=== PATIENT | female | born 1995 | race Caucasian/White ===

== ENCOUNTER 2019-05-05 23:51 | Emergency (ER) | payer OTHER, SELFPAY ==
[2019-05-05 23:52] VITALS: BP 113/77; PULSE 96; RESP 16; TEMP 37.1; O2SAT 96; BMI 38.0
--- NOTE | 2019-05-06 00:06 | CT_ITS ---
STUDY: CT BRAIN WITHOUT CONTRAST REASON FOR EXAM: Female, 24 years old patient has delirium. Patient has been sick for a few days with fever, headache, and dizziness. RADIATION DOSAGE (If Supplied By Facility): CTDIvol = ( 44.99 ) mGy, DLP = ( 762.36 ) mGycm TECHNIQUE: Transaxial CT imaging of the brain was performed without administration of intravenous contrast material. Multiplanar reformations are submitted for interpretation. Individualized dose optimization techniques were used for this CT. COMPARISON: No relevant priors. FINDINGS: Normal soft tissue structures. Normal calvarium. Normal size ventricles and extra-axial spaces for the patient''s age. Normal white matter tracts of the cerebral hemispheres. Normal basal ganglia and thalami. Normal brainstem. Normal cerebellum. There is no intracranial hemorrhage. There are no findings of an acute ischemic infarction. Normal visualized paranasal sinuses. CT/Brain/Head without Contrast IMPRESSION: Normal unenhanced CT scan of the brain. Electronically Signed: Alyce Mclaughlin MD at 1:30 EST , Service support ,
--- NOTE | 2019-05-06 00:07 | ED.VIS.GEN ---
History of Present Illness Chief Complaint: General Illness Informant: Patient Onset: Yesterday Context: Gradual Onset Timing: Continuous Current Severity: Moderate Maximum Severity: Moderate Narrative: The patient is a 24-year-old female with remote history of seizure disorder who presents to the emergency department with fever and nausea. The patient states that yesterday, she had just some generalized myalgias. She states she had a low-grade fever and mild frontal headache. She ate yesterday, but states she really did not have an appetite today. She thought that she would feel better if she would eat something. She states that she baked some chicken, but did not cook at all the way through. She states that she has had a violent reaction to raw chicken in the past. Her brother, who she stays with, said that she appeared to be confused and was complaining of abdominal pain. She states that is since resolved. She denies neck pain. She is had no further fever. She had no further vomiting. She is not on any daily medications. Prior similar symptoms: No Recent Illness/Hospitalization: No Past Medical History - Allergies and Home Meds Allergies/Adverse Reactions: Allergies RAW CHICKEN Adverse Reaction (Uncoded 05/05/19 23:56) Fever and skin rash Primary Care Physician: Edie Petit,Out of [Primary Care Provider] - Prior records reviewed: Yes Past Medical History: - - History of prior seizures Surgical History: noncontributory Review of Systems General: Reports: Fever. Denies: Chills, Sweats Eyes: Denies: Visual changes - bilaterally, Diplopia ENT: Denies: Rhinorrhea, Sore throat Cardiovascular: Denies: Chest pain, Palpitations Respiratory: Denies: Dyspnea, Cough, Dyspnea on exertion Gastrointestinal: Reports: Nausea. Denies: Abdominal pain, Vomiting, Diarrhea, Melena, Hematochezia Genitourinary: Denies: Dysuria, Hematuria, Frequency Musculoskeletal: Denies: Back pain, Extremity Pain Skin: Denies: Rash, Wounds Neurological: Denies: Headache, Weakness, Numbness Physical Exam Vital Signs/Narrative: Vital Signs Temp Pulse Resp BP Pulse Ox 05/05/19 23:52 98.7 F 96 16 113/77 96 Inital Vital Signs reviewed: Yes General: Well nourished, Well developed, No Acute Distress Head: Normocephalic, Atraumatic Eyes: Perrl, EOMI ENT: Moist mucous membranes, No rhinorrhea Neck: Supple, Nontender Cardiovascular: Regular rate, Regular rhythm, No murmurs Respiratory: No distress, CTA bilaterally, Chest nontender Abdomen: Soft, Nontender, Nondistended, Normal bowel sounds Back: Nontender, Normal Inspection Extremities: Nontender, No edema Skin: Normal color, No rash Neurological: Alert, Oriented x3, Cranial nerves II-XII grossly intact, Normal Strength, Normal Sensation Psychological: Normal affect, Normal Mood Diagnostic/Tx/Re-eval Abnormal Lab Results 05/06/19 05/06/19 05/06/19 00:15 00:15 00:15 WBC 5.4 RBC 4.76 Hgb 13.1 Hct 40.3 MCV 84.7 MCH 27.5 MCHC 32.5 RDW Std Deviation 38.8 RDW Coeff of [place] 12.7 Plt Count 201 MPV 10.4 Immature Gran % (Auto) 0.400 Neut % (Auto) 64.0 Lymph % (Auto) 23.3 [place] % (Auto) 11.7 H Eos % (Auto) 0.2 Baso % (Auto) 0.4 Absolute Neuts (auto) 3.5 Absolute Lymphs (auto) 1.26 Nucleated RBC % 0 Sodium 139 Potassium 3.6 Chloride 108 H Carbon Dioxide 27.0 Anion Gap 4 L BUN 9 Creatinine 0.74 Estim Creat Clear Calc 97.81 Est GFR (MDRD) Af Amer 126 Est GFR (MDRD) Non-Af 104 BUN/Creatinine Ratio 12.2 Glucose 97 Calcium 9.0 Total Bilirubin 0.20 AST 12 L ALT 25 Alkaline Phosphatase 34 L Total Protein 7.6 Albumin 3.7 Globulin 3.9 Albumin/Globulin Ratio 0.9 Urine Color Urine Clarity Urine pH Ur Specific [place] Urine Protein Urine Glucose (UA) Urine Ketones Urine Occult Blood Urine Nitrite Urine Bilirubin Urine Urobilinogen Ur Leukocyte Esterase Urine RBC Urine WBC Ur Squamous Epith Cells Urine Bacteria Urine Mucus Urine Test Negative 05/06/19 00:15 WBC RBC Hgb Hct MCV MCH MCHC RDW Std Deviation RDW Coeff of [place] Plt Count MPV Immature Gran % (Auto) Neut % (Auto) Lymph % (Auto) [place] % (Auto) Eos % (Auto) Baso % (Auto) Absolute Neuts (auto) Absolute Lymphs (auto) Nucleated RBC % Sodium Potassium Chloride Carbon Dioxide Anion Gap BUN Creatinine Estim Creat Clear Calc Est GFR (MDRD) Af Amer Est GFR (MDRD) Non-Af BUN/Creatinine Ratio Glucose Calcium Total Bilirubin AST ALT Alkaline Phosphatase Total Protein Albumin Globulin Albumin/Globulin Ratio Urine Color Yellow Urine Clarity Clear Urine pH 7.0 Ur Specific [place] 1.005 Urine Protein Negative Urine Glucose (UA) Normal Urine Ketones Negative Urine Occult Blood Negative Urine Nitrite Negative Urine Bilirubin Negative Urine Urobilinogen Normal Ur Leukocyte Esterase Negative Urine RBC 0 SEEN Urine WBC 0 SEEN Ur Squamous Epith Cells 0 SEEN Urine Bacteria 0 SEEN Urine Mucus 0 SEEN Urine Test - Medical Decision Making The patient presents with nausea and some transient confusion after 36 hours of generalized illness and she ate chicken. She is awake and alert now. She has not confused. She is not delirious. She is not meningitic or encephalopathic. However, she does have a remote history of seizure so I did obtain a head CT. This was unremarkable for acute process. Screening labs were obtained and were unremarkable. The patient is not . There is no ketones in her urine. Her liver functions and electrolyte panel was within normal limits. She was given fluids and Zofran. She is feeling improved. At this point, I do feel that this is likely a reaction to the undercooked chicken. She has no abdominal pain. She has no fever. Her metabolic work-up is unremarkable and she is feeling improved. I do feel that she is safe for outpatient therapy. Impression 1. Gastroenteritis ED Disposition - Plan for ED Patient: Instructions: GASTROENTERITIS, Viral (7y-Adult) Prescriptions: Ondansetron [Zofran Odt] 4 mg PO Q8H PRN PRN #10 tab PRN Reason: Nausea Prescription Printed Referrals: [facility] Doctor,Out of [Primary Care Provider] -
[2019-05-06] MEDS: 0.9% Normal Saline 1,000 ML 1000 ML IV (00:16)
[2019-05-06 00:20] VITALS: PULSE 91; RESP 16; O2SAT 95
[2019-05-06 00:26] LABS: Absolute Lymphocyte Count 1.26 X10^3/uL (0.83-4.51); Absolute Neutrophil Count 3.5 X10^3/uL (2.0-7.7); Basophil# 0.02 X10^3/uL; Basophil% 0.4 % (0-1); Eosinophil# 0.01 X10^3/uL; Eosinophils% 0.2 % (0-5); Hematocrit 40.3 % (37-47); Hemoglobin 13.1 g/dL (12.0-15.0); Lymphocyte # 1.26 X10^3/ul (4.0); Lymphocyte % 23.3 % (19-41); Mean Corp Hgb Conc 32.5 g/dL (32-36); Mean Corpuscular Hgb 27.5 pg (27.0-32.0); Mean Corpuscular Volume 84.7 fL (81-99); Mean Platelet Vol. 10.4 fl (6.2-12.0); Monocyte# 0.63 X10^3/uL; Monocyte% 11.7 % (0-10); NRBC Flagged by Analyzer 0 % (0-5); Neutrophil # 3.46 X10^3/uL (2.7-7.7); Platelet Count 201 K/mm3 (150-450); RBC Distribution Width CV 12.7 % (11.6-14.6); RBC Distribution Width SD 38.8 fl (35.1-43.9); Red Blood Count 4.76 M/mm3 (4.2-5.4); White Blood Count 5.4 K/mm3 (4.4-11.0)
[2019-05-06 00:29] LABS: Bacteria 0 SEEN /hpf (None Seen); Mucous, Urine 0 SEEN /hpf (<or=2+); Red Blood Cells-Urine 0 SEEN /hpf (0-5); Squamous Epithelial Cells - UA 0 SEEN /hpf (5-10); White Blood Cells 0 SEEN /hpf (0-5)
[2019-05-06 00:31] LABS: Color, Urine Yellow (Yellow); Glucose, Dipstick Normal (Normal); Ketone-Dipstick Negative (Negative); Leukocyte Esterase-Dipstick Negative /ul (Negative); Nitrite-Dipstick Negative (Negative); Occult Blood-Urine Negative /ul (Negative); Protein-Dipstick Negative (Negative); Specific Gravity, Urine 1.005 (1.002-1.030); Urine Bilirubin Dipstick Negative (Negative); Urine Clarity Clear (Clear); Urine Urobilinogen Normal (Normal)
[2019-05-06 00:34] LABS: Internal QC Validated? YES +Cl - CLEAR BKGD; Pregnancy, Urine Negative Negative
[2019-05-06 00:47] LABS: ALB/GLOB Ratio 0.9 RATIO (0.9-2.4); AST(SGOT) 12 U/L (15-37); Alanine Aminotransfer ALT/SGPT 25 U/L (13-56); Albumin, Serum 3.7 g/dL (3.2-5.0); Alkaline Phosphatase 34 U/L (45-117); Anion Gap 4 (5-15); BUN 9 mg/dL (7-18); BUN/Creat Ratio 12.2 RATIO (10-20); Chloride 108 mmol/L (98-107); Creatinine, Serum 0.74 mg/dL (0.55-1.02); EST Glomerular Filtration Rate 104 mL/min (>60); Est Glom Filt Rate - Afr Amer 126 mL/min (>60); Estimated Creatinine Clearance 97.81 ml/min; Globulin 3.9 g/dL (2.2-4.2); Glucose 97 mg/dL (74-106); Potassium 3.6 mmol/L (3.5-5.1); Protein, Total 7.6 g/dL (6.4-8.2); Sodium Level 139 mmol/L (136-145)
[2019-05-06 01:38] VITALS: PULSE 86; RESP 19
== END 2019-05-06 01:39 | disposition home or self-care (01) ==
LOC: ED 05-06 00:29
PROVIDERS: Emergency Provider Emergency Medicine
DX: K52.9 Noninfective gastroenteritis and colitis, unspecified (principal)
CPT/HCPCS: 70450; 80053; 81001; 81025; 85025; 96360; 99284; J7030; A4216